=== PATIENT | female | born 1995 | race Caucasian/White ===

== ENCOUNTER 2021-12-23 11:25 | Outpatient (CLI) | payer BC ==
--- NOTE | 2021-12-23 12:32 | Ultrasound Report ---
ULTRASOUND BREAST LEFT LIMITED, 12/23/2021 CLINICAL INFORMATION / INDICATION: N64.4. TECHNIQUE: Targeted ultrasound evaluation was performed of the area of interest. COMPARISON: None. FINDINGS: Ultrasound imaging of the 1 to 3 clock breast at the areolar demonstrates normal fibroglandular echot exture without evidence of focal fluid collection, mass or architectural distortion. IMPRESSION: No sonographic evidence of malignancy. Follow up recommendation: Unless otherwise clinically indicated, recommend patient return to routine screening mammography at age 38. BI-RADS Category 1: NEGATIVE. A normal or "negative" report should not preclude biopsy or follow-up of a clinically suspicious find ing. Signer Name: Carlitos Bentley DO Signed: 12/23/2021 12:25 PM Workstation Name: [id number]
== END 2021-12-23 11:26 | disposition home or self-care (01) ==
LOC: MAMMO 11:25
PROVIDERS: ATTEND Obstetrics & Gynecology
DX: N64.4 Mastodynia (principal)